=== PATIENT | female | born 1990 | race Caucasian/White ===

== ENCOUNTER 2019-04-26 09:25 | Emergency (ER) | payer OTHER ==
[2019-04-26 09:42] VITALS: BP 125/80; PULSE 70
--- NOTE | 2019-04-26 09:57 | EDM.PDOC ---
ED HPI GENERAL MEDICAL PROBLEM - General Chief Complaint: Chest Pain Stated Complaint: chest pain breathing issues Time Seen by Provider: 04/26/19 09:50 Source of Information: Reports: Patient, Old Records, RN History Limitations: Reports: No Limitations - History of Present Illness INITIAL COMMENTS - FREE TEXT/NARRATIVE: 29 yo female with a pHx of PE has had slight chest tightness and subjective SOB since Wednesday. No calf pain, fever or cough. Called the clinic today for an appt and was told to go directly to the ER. 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) (none) Chest Pain Score (Numeric/FACES): 6 - Related Data Allergies Allergy/AdvReac Type Severity Reaction Status Date / Time ciprofloxacin [From Cipro] Allergy Hives Verified 04/26/19 09:41 ciprofloxacin HCl Allergy Hives Verified 04/26/19 09:41 [From Cipro] clindamycin Allergy Rash Verified 04/26/19 09:41 dexamethasone Allergy Hives Verified 04/26/19 09:41 Penicillins Allergy Swelling Verified 04/26/19 09:41 Sulfa (Sulfonamide Allergy Hives Verified 04/26/19 09:41 Antibiotics) Home Meds: Home Meds NK [No Known Home Meds] 04/26/19 [History] Past Medical History Cardiovascular History: Reports: Blood Clots/VTE/DVT Respiratory History: Reports: PE 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 History: PRE ECLAMPISA Musculoskeletal History: Reports: Other (See Below) Other Musculoskeletal History: broken wrist Neurological History: Reports: Concussion, Head Trauma, Migraines Psychiatric History: Reports: Depression, Eating Disorders, PTSD, Suicide Attempt, Suicidal Ideation Other Endocrine/Metabolic History: hypoglycemia in the past - Past Surgical History GI Surgical History: Reports: Appendectomy, Cholecystectomy Social & Family History - Tobacco Use Smoking Status *Q: Former Smoker Used Tobacco, but Quit: Yes Month/Year Tobacco Last Used: 10 years - Caffeine Use Caffeine Use: Reports: Coffee - Recreational Drug Use Recreational Drug Use: No ED ROS GENERAL - Review of Systems Review Of Systems: See Below Constitutional: Reports: No Symptoms HEENT: Reports: No Symptoms Respiratory: Reports: Shortness of Breath. Denies: Wheezing, Pleuritic Chest Pain, Cough, Sputum, Hemoptysis Cardiovascular: Reports: No Symptoms Endocrine: Reports: No Symptoms GI/Abdominal: Reports: No Symptoms : Reports: No Symptoms Musculoskeletal: Reports: No Symptoms Skin: Reports: No Symptoms Neurological: Reports: No Symptoms ED EXAM, GENERAL - Physical Exam Exam: See Below Exam Limited By: No Limitations General Appearance: Alert, WD/WN, No Apparent Distress Eye Exam: Bilateral Eye: Normal Inspection Ears: Normal External Exam, Normal Canal, Hearing Grossly Normal, Normal TMs Ear Exam: Bilateral Ear: Auricle Normal, Canal Normal, TM normal Nose: Normal Inspection, No Blood Throat/Mouth: Normal Inspection, Normal Lips, Normal Oropharynx, Normal Voice, No Airway Compromise Head: Atraumatic, Normocephalic Neck: Normal Inspection Respiratory/Chest: No Respiratory Distress, Lungs Clear, Normal Breath Sounds, No Accessory Muscle Use, Other (mild sternal tenderness with palpation). No: Chest Non-Tender Cardiovascular: Regular Rate, Rhythm, No Edema GI/Abdominal: Normal Bowel Sounds, Soft, Non-Tender, No Distention Back Exam: Normal Inspection Extremities: Normal Inspection, Normal Range of Motion, Non-Tender, No Pedal Edema Neurological: Alert, Oriented, CN II-XII Intact, Normal Cognition, No Motor/ Sensory Deficits Psychiatric: Normal Affect, Normal Mood Skin Exam: Warm, Dry, Intact, Normal Color, No Rash Course - Vital Signs Last Recorded V/S: Last Vital Signs Temp 36.9 C 04/26/19 09:40 Pulse 70 04/26/19 09:40 Resp 16 04/26/19 09:40 BP 125/80 04/26/19 09:40 Pulse Ox 100 04/26/19 09:40 - Orders/Labs/Meds Labs: Laboratory Tests 04/26/19 Range/Units 09:49 D-Dimer, Quantitative < 100 (0.0-400.0) ng/mL Departure - Departure Time of Disposition: 10:39 Disposition: Home, Self-Care 01 Condition: Good Clinical Impression: Costochondritis - Discharge Information *PRESCRIPTION DRUG MONITORING PROGRAM REVIEWED*: No *COPY OF PRESCRIPTION DRUG MONITORING REPORT IN PATIENT NATALIE: No Instructions: Costochondritis, [id number] Referrals: Katerina Hewitt PA [Primary Care Provider] - Forms: ED Department Discharge Additional Instructions: ibuprofen 400 mg every 6 hrs with food OR Aleve 1 every 8 hrs with food. Acetaminophen as needed for added relief. Recheck in the clinic as needed. Sepsis Event Note - Evaluation Sepsis Screening Result: No Definite Risk - Focused Exam Vital Signs: Vital Signs Temp Pulse Resp BP Pulse Ox 04/26/19 09:40 36.9 C 70 16 125/80 100 Date Exam was Performed: 04/26/19 Time Exam was Performed: 10:39
== END 2019-04-26 10:55 | disposition home or self-care (01) ==
LOC: JP.ED 09:25
DX: M94.0 Chondrocostal junction syndrome [Tietze] (principal); Z88.1 Allergy status to other antibiotic agents; Z88.0 Allergy status to penicillin; Z88.2 Allergy status to sulfonamides; Z88.8 Allergy status to other drugs, medicaments and biological substances; Z87.891 Personal history of nicotine dependence
CPT/HCPCS: 36415; 85379; 99284

== ENCOUNTER 2021-03-20 13:54 | Emergency (ER) | payer SELFPAY ==
[2021-03-20 14:28] VITALS: BP 134/62; PULSE 83
[2021-03-20] MEDS ORDERED: HYDROmorphone 0.5 MG/0.5 ML Syringe IVPUSH ONE (14:44)
[2021-03-20] MEDS ORDERED: Sodium Chloride 0.9% 1,000 ML IV SCH (14:45)
[2021-03-20] MEDS ORDERED: Ondansetron 4 MG/2 ML SDV IVPUSH ONE (14:58)
[2021-03-20] MEDS ORDERED: Iopamidol 510 MG/ML 50 ML SDV IV ONE (15:27)
[2021-03-20] MEDS ORDERED: Sodium Chloride 0.9% 75 ML IV SCH (15:30)
[2021-03-20] MEDS ORDERED: Ketorolac 30 MG/ML SDV IVPUSH ONE (15:48)
[2021-03-20] MEDS ORDERED: Alum Hydrox/Mag Hydrox/Simeth 15 ML, Lidocaine 2% 15 ML PO ONE ×2 (16:14)
[2021-03-20] MEDS ORDERED: Pantoprazole 40 MG Vial IVPUSH ONE (17:13)
== END 2021-03-20 17:57 | disposition home or self-care (01) ==
LOC: JP.ED 13:54
DX: K52.9 Noninfective gastroenteritis and colitis, unspecified (principal); R11.2 Nausea with vomiting, unspecified; Z88.0 Allergy status to penicillin; Z88.1 Allergy status to other antibiotic agents; Z88.2 Allergy status to sulfonamides; Z88.8 Allergy status to other drugs, medicaments and biological substances
CPT/HCPCS: 36415; 74177; 80053; 83605; 83690; 85025; 96374; 96375; 99284; A9270; C9113; J1170; J1885; J2405; J7030; Q9966